=== PATIENT | male | born 1960 | race Hispanic/Latino ===

== ENCOUNTER 2023-06-30 17:17 | Emergency (ER) | payer OTHER ==
[2023-06-30] MEDS ORDERED: Boostrix 0.5 ML (Tdap) VIAL (>/=7 yrs of age) ONE (17:27)
[2023-06-30] MEDS ORDERED: Bacitracin 1 PK ONE (17:47)
== END 2023-06-30 18:00 | disposition home or self-care (01) ==
LOC: MADERS 17:17
DX: S61.451A Open bite of right hand, initial encounter (principal); I10 Essential (primary) hypertension; Z23 Encounter for immunization; W54.0XXA Bitten by dog, initial encounter
CPT/HCPCS: 90471; 90715